=== PATIENT | male | born 1980 | race Hispanic/Latino ===

== ENCOUNTER → 2024-10-13 | Outpatient (CLI) | payer OTHER ==
--- NOTE | 2024-10-13 15:46 | HMCIMG ---
US SOFT TISSUE GROIN REASON: INGUINAL HERNIA. COMPARISON: None TECHNIQUE: Right groin ultrasound study was performed. FINDINGS: There is cystic structure is seen between the testicles measures 10.6 x 7.8 x 8.1 cm. Flow is seen of both testes. IMPRESSION: Findings as described above.
== END | disposition home or self-care (01) ==
LOC: RAH 13:08
PROVIDERS: ATTEND Physical Medicine & Rehabilitation
DX: K40.91 Unilateral inguinal hernia, without obstruction or gangrene, recurrent (principal); N44.2 Benign cyst of testis
CPT/HCPCS: 76882